=== PATIENT | female | born 1990 | race Caucasian/White ===

== ENCOUNTER 2018-02-15 18:07 | Emergency (ER) | payer OTHER ==
[~2018-02-15] VITALS: Ht 162.6 cm; Wt 93.0 kg
[~2018-02-15 18:07] MED LIST: ADDERALL 30 MG30 MG PO; DICLOFENAC POTA50 MG PO; KETO10TA2 PO; MEDROLPACK PO; NEXIUM 24HR20 MG PO; NEXIUM40 MG/PACK; NEXIUM40 MG/PACK PO; ORPH100T PO; PERCOCET 5/3251 TAB PO; ZOFRAN4 MG PO
[2018-02-16] MEDS ORDERED: TENCON 50-3251 EACH PO (02:33)
[2018-02-16] MEDS ORDERED: CEFUROXIME500 MG PO ×2 (02:35→02:39)
[2018-02-16] MEDS ORDERED: ZOFRAN ODT8 MG PO ×2 (02:37→02:39)
[2018-02-16] MEDS ORDERED: PEPCID40 MG PO ×2 (02:38→02:39)
== END 2018-02-16 02:57 ==
LOC: ER 18:07
DX: N39.0 Urinary tract infection, site not specified (principal); G43.809 Other migraine, not intractable, without status migrainosus; R11.0 Nausea

== ENCOUNTER 2018-04-13 17:22 | Emergency (ER) | payer OTHER ==
[~2018-04-13] VITALS: Ht 162.6 cm; Wt 91.2 kg
[~2018-04-13 17:22] MED LIST changes: +CEFUROXIME500 MG PO; +PEPCID40 MG PO; +TENCON 50-3251 EACH PO; +ZOFRAN ODT8 MG PO
[2018-04-13] MEDS ORDERED: ALBUTEROL1.25 MG/3 (17:44)
== END 2018-04-13 22:47 | disposition home or self-care (01) ==
LOC: ER 17:22
DX: J45.998 Other asthma (principal)

== ENCOUNTER 2018-04-23 21:12 | Emergency (ER) | payer OTHER ==
[~2018-04-23] VITALS: Ht 162.6 cm; Wt 93.0 kg
[~2018-04-23 21:12] MED LIST changes: +ALBUTEROL1.25 MG/3
== END 2018-04-24 00:06 | disposition home or self-care (01) ==
LOC: ER 21:12
DX: S90.31XA Contusion of right foot, initial encounter (principal); W22.8XXA Striking against or struck by other objects, initial encounter; Y93.89 Activity, other specified; Y92.89 Other specified places as the place of occurrence of the external cause; Y99.8 Other external cause status

== ENCOUNTER 2019-01-12 02:38 | Emergency (ER) | payer OTHER ==
[~2019-01-12] VITALS: Ht 162.6 cm; Wt 99.8 kg
== END 2019-01-12 04:54 | disposition home or self-care (01) ==
LOC: ER 02:38
DX: M54.16 Radiculopathy, lumbar region (principal); M54.32 Sciatica, left side

== ENCOUNTER 2019-02-12 16:51 | Emergency (ER) | payer OTHER ==
[~2019-02-12] VITALS: Ht 162.6 cm; Wt 95.3 kg
== END 2019-02-12 20:11 | disposition home or self-care (01) ==
LOC: ER 16:51
DX: G44.209 Tension-type headache, unspecified, not intractable (principal)

== ENCOUNTER 2019-03-22 17:34 | Emergency (ER) | payer OTHER ==
[~2019-03-22] VITALS: Ht 162.6 cm; Wt 97.5 kg
[2019-03-22] MEDS ORDERED: NAPROXEN500 MG PO (19:55)
[2019-03-22] MEDS ORDERED: SKELAXIN800 MG PO (19:55)
[2019-03-22] MEDS ORDERED: DIAZEPAM10 MG PO (19:55)
== END 2019-03-22 20:19 | disposition home or self-care (01) ==
LOC: ER 17:34
DX: M54.5 Low back pain (principal)

== ENCOUNTER 2019-07-07 12:11 | Emergency (ER) | payer OTHER ==
[~2019-07-07] VITALS: Ht 162.6 cm; Wt 94.8 kg
[~2019-07-07 12:11] MED LIST changes: +DIAZEPAM10 MG PO; +NAPROXEN500 MG PO; +SKELAXIN800 MG PO
[2019-07-07] MEDS ORDERED: MECLIZINE HCL25 MG PO (14:19)
== END 2019-07-07 14:37 | disposition home or self-care (01) ==
LOC: ER 12:11
DX: R42 Dizziness and giddiness (principal)

== ENCOUNTER 2020-04-09 13:46 | Emergency (ER) | payer OTHER ==
[~2020-04-09] VITALS: Ht 162.6 cm; Wt 99.8 kg
[~2020-04-09 13:46] MED LIST changes: +MECLIZINE HCL25 MG PO
[2020-04-09] MEDS ORDERED: MEDROLPACK PO ×2 (18:10→18:20)
[2020-04-09] MEDS ORDERED: ACETAMINOPHEN500 M1 PO (18:29)
== END 2020-04-09 18:45 | disposition home or self-care (01) ==
LOC: ER 13:46
DX: R51.9 Headache, unspecified (principal)

== ENCOUNTER 2021-08-03 14:23 | Emergency (ER) | payer OTHER ==
[~2021-08-03] VITALS: Ht 162.6 cm; Wt 99.8 kg
[~2021-08-03 14:23] MED LIST changes: +ACETAMINOPHEN500 M1 PO
[2021-08-03] MEDS ORDERED: NEXIUM40 M1 PO (14:34)
[2021-08-03] MEDS ORDERED: ADDERALL 20 MG20 MG (14:34)
== END 2021-08-03 18:20 | disposition home or self-care (01) ==
LOC: ER 14:23
DX: S90.121A Contusion of right lesser toe(s) without damage to nail, initial encounter (principal); X58.XXXA Exposure to other specified factors, initial encounter; Y93.9 Activity, unspecified; Y92.9 Unspecified place or not applicable; Y99.9 Unspecified external cause status; Z91.018 Allergy to other foods; Z88.8 Allergy status to other drugs, medicaments and biological substances

== ENCOUNTER 2021-10-30 20:20 | Emergency (ER) | payer OTHER ==
[~2021-10-30] VITALS: Ht 162.6 cm; Wt 99.8 kg
[~2021-10-30 20:20] MED LIST changes: +ADDERALL 20 MG20 MG; +NEXIUM40 M1 PO
== END 2021-10-31 00:19 | disposition home or self-care (01) ==
LOC: ER 20:20
DX: M94.0 Chondrocostal junction syndrome [Tietze] (principal); Z88.6 Allergy status to analgesic agent

== ENCOUNTER 2022-01-30 15:22 | Emergency (ER) | payer OTHER ==
[~2022-01-30] VITALS: Ht 162.6 cm; Wt 96.6 kg
[2022-01-30] MEDS ORDERED: ZITHROMAX500 MG PO (22:17)
[2022-01-30] MEDS ORDERED: MEDROLPACK PO (22:17)
[2022-01-30] MEDS ORDERED: TUSNEL DM LIQU473 ML PO (22:17)
== END 2022-01-30 22:27 | disposition home or self-care (01) ==
LOC: ER 15:22
DX: J06.9 Acute upper respiratory infection, unspecified (principal); Z20.828 Contact with and (suspected) exposure to other viral communicable diseases

== ENCOUNTER 2022-06-13 20:24 | Emergency (ER) | payer OTHER ==
[~2022-06-13] VITALS: Ht 162.6 cm; Wt 99.8 kg
[~2022-06-13 20:24] MED LIST changes: +TUSNEL DM LIQU473 ML PO; +ZITHROMAX500 MG PO
== END 2022-06-14 00:04 | disposition home or self-care (01) ==
LOC: ER 20:24
DX: J10.1 Influenza due to other identified influenza virus with other respiratory manifestations (principal); R53.81 Other malaise; J02.9 Acute pharyngitis, unspecified; J45.998 Other asthma; Z88.5 Allergy status to narcotic agent; Z91.018 Allergy to other foods; Z88.6 Allergy status to analgesic agent

== ENCOUNTER 2023-12-04 14:52 | Emergency (ER) | payer OTHER ==
[~2023-12-04] VITALS: Ht 162.6 cm; Wt 99.8 kg
[2023-12-04] MEDS ORDERED: ENOXAPARIN SODIUM 80 MG/0.8 ML SYRINGE SUBCUTANEO ONE ×2 (16:45→17:04)
[2023-12-04] MEDS ORDERED: TRAMADOL HCL 50 MG TABLET PO ONE (16:45)
[2023-12-04 17:13] LABS: HEMATOCRIT 36.8 % (36.0-45.00); HEMOGLOBIN 12.4 g/dL (12.0-15.00); MEAN CELL VOLUME 83.6 fL (80.00-100.00); MEAN CORPUSCULAR HEMOGLOBIN 28.1 pg (27.00-32.0); MEAN CORPUSCULAR HGB CONC 33.6 g/dl (32.0-36.0); PLATELET COUNT 265 K/uL (150-450); RED CELL DISTRIBUTION WIDTH 14.1 % (11.5-14.5)
[2023-12-04 17:37] LABS: PROTHROMBIN TIME 10.9 SECONDS (9.0-11.5)
[2023-12-04 17:41] LABS: D DIMER 0.3 MG/L; PARTIAL THROMBOPLASTIN TIME 29.9 SECONDS (22.0-34.0)
[2023-12-04 17:44] LABS: ALBUMIN 3.6 gm/dL (3.4-5.0); BILIRUBIN TOTAL 0.29 mg/dL (0.3-1.2); CALCIUM 9.7 mg/dL (8.5-10.1); CREATININE SERUM 0.78 mg/dL (0.55-1.02); GFR 85.05; POTASSIUM 3.47 mEq/L (3.5-5.1); TOTAL PROTEIN 7.6 gm/dL (6.4-8.2)
[2023-12-04] MEDS ORDERED: SUMATRIPTAN SUCCINATE 6 MG/0.5 ML VIAL SUBCUTANEO ONE ×2 (18:13→18:15)
[2023-12-04] MEDS ORDERED: ONDANSETRON HCL 2 MG/ML VIAL ONE (19:37)
== END 2023-12-04 20:20 | disposition home or self-care (01) ==
LOC: ER 14:53
PROVIDERS: General Practice
DX: M79.605 Pain in left leg (principal); Z88.5 Allergy status to narcotic agent; Z91.018 Allergy to other foods

== ENCOUNTER 2023-12-05 08:29 | Emergency (ER) | payer OTHER ==
[~2023-12-05] VITALS: Ht 162.6 cm; Wt 99.8 kg
[2023-12-05] MEDS ORDERED: KETOROLAC TROMETHAMINE 60 MG VIAL IM STA (09:52)
[2023-12-05] MEDS ORDERED: KETOROLAC TROMETHAMINE 60 MG VIAL IM ONE (10:01)
[2023-12-05 10:54] LABS: HEMATOCRIT 36.8 % (36.0-45.00); HEMOGLOBIN 12.7 g/dL (12.0-15.00); MEAN CELL VOLUME 83.7 fL (80.00-100.00); MEAN CORPUSCULAR HGB CONC 34.6 g/dl (32.0-36.0); PLATELET COUNT 259 K/uL (150-450); RED CELL DISTRIBUTION WIDTH 14.1 % (11.5-14.5)
== END 2023-12-05 11:57 | disposition home or self-care (01) ==
LOC: ER 08:30
PROVIDERS: General Practice
DX: M86.9 Osteomyelitis, unspecified (principal); Z87.09 Personal history of other diseases of the respiratory system; Z88.8 Allergy status to other drugs, medicaments and biological substances; Z91.018 Allergy to other foods